=== PATIENT | female | born 1985 ===

== ENCOUNTER 2018-06-03 10:18 | Day surgery (SDC) | payer OTHER | END 2018-06-03 14:25 | disposition home or self-care (01) | LOC: AMB-ENDOS 10:18 | DX: K31.7 Polyp of stomach and duodenum (principal) ==

== ENCOUNTER 2019-01-05 06:21 | Day surgery (SDC) | payer OTHER ==
[2019-01-05] MEDS ORDERED: PERCOCET 5-3251 EACH PO (13:47)
[2019-01-05] MEDS ORDERED: SURFAK240 M1 PO (13:48)
[2019-01-05] MEDS ORDERED: NEURONTIN600 MG PO (13:48)
[2019-01-05] MEDS ORDERED: POLY119PG PO (13:48)
[2019-01-05] MEDS ORDERED: ZOFRAN4 MG PO (13:49)
== END 2019-01-05 17:45 | disposition home or self-care (01) ==
LOC: CIR.AMB 06:21
DX: K80.10 Calculus of gallbladder with chronic cholecystitis without obstruction (principal); K42.9 Umbilical hernia without obstruction or gangrene; K43.2 Incisional hernia without obstruction or gangrene

== ENCOUNTER 2022-10-04 15:45 | Emergency (ER) | payer OTHER ==
[~2022-10-04] VITALS: Ht 175.3 cm; Wt 108.9 kg
[~2022-10-04 15:45] MED LIST: NEURONTIN600 MG PO; PERCOCET 5-3251 EACH PO; POLY119PG PO; SURFAK240 M1 PO; ZOFRAN4 MG PO
== END 2022-10-05 18:44 | disposition home or self-care (01) ==
LOC: ER 15:45
DX: D56.0 Alpha thalassemia (principal); D50.9 Iron deficiency anemia, unspecified

== ENCOUNTER 2023-04-10 10:06 | Inpatient (IN) | payer OTHER ==
[~2023-04-10] VITALS: Ht 175.3 cm; Wt 100.7 kg
[2023-04-13] MEDS ORDERED: MEGACE PO (10:19)
[2023-04-13] MEDS ORDERED: [UNRECOGNIZED DRUG - OTHER] PO (10:20)
[2023-04-16] MEDS ORDERED: MEGESTROL ACETA40 MG (13:02)
[2023-04-16] MEDS ORDERED: CETIRIZINE HCL10 MG (13:02)
[2023-04-16] MEDS ORDERED: FLONASE16 GM (13:02)
[2023-04-17] MEDS ORDERED: KETOROLAC30 MG/1 M2 PO (09:02)
[2023-04-17] MEDS ORDERED: ACETAMINOPHEN-1 EAC2 PO (09:02)
[2023-04-17] MEDS ORDERED: KETO10TA2 PO (09:05)
== END 2023-04-17 13:49 | disposition home or self-care (01) | DRG 743 ==
LOC: SURH 04-16 07:15 → OB/GYN 04-16 08:31 → O/R 04-16 08:31 → SURH 04-16 13:30 → OB/GYN 04-16 16:58
PROVIDERS: ADMIT Obstetrics & Gynecology; ATTEND Obstetrics & Gynecology
PROC: 0JQC0ZZ Repair Pelvic Region Subcutaneous Tissue and Fascia, Open Approach (ICD-10-PCS; 2023-04-16)
PROC: 0USG0ZZ Reposition Vagina, Open Approach (ICD-10-PCS; 2023-04-16)
PROC: 0TJB8ZZ Inspection of Bladder, Via Natural or Artificial Opening Endoscopic (ICD-10-PCS; 2023-04-16)
PROC: 0UT97ZZ Resection of Uterus, Via Natural or Artificial Opening (ICD-10-PCS; principal; 2023-04-16 13:30)
DX: N80.03 Adenomyosis of the uterus (principal); Z20.822 Contact with and (suspected) exposure to COVID-19; D50.0 Iron deficiency anemia secondary to blood loss (chronic); N81.11 Cystocele, midline; N81.5 Vaginal enterocele